=== PATIENT | female | born 1995 | race African-American/Black ===

== ENCOUNTER 2020-05-17 16:33 | Emergency (ER) | payer OTHER ==
[2020-05-17] MEDS ORDERED: diphenhydrAMINE HCL 50 MG/ML VIAL ONE (16:58)
[2020-05-17] MEDS ORDERED: HALOPERIDOL LACTATE INJ 5 MG/ML VIAL ONE (16:58)
[2020-05-17] MEDS ORDERED: LORAZEPAM INJ 2 MG/ML VIAL ONE (16:58)
[2020-05-17] MEDS ORDERED: HALOPERIDOL LACTATE INJ 5 MG/ML VIAL IM ONE (17:00)
[2020-05-17] MEDS ORDERED: LORAZEPAM INJ 2 MG/ML VIAL IM ONE (17:00)
[2020-05-17] MEDS ORDERED: diphenhydrAMINE HCL 50 MG/ML VIAL IM ONE (17:00)
[2020-05-17] MEDS ORDERED: POTASSIUM CHLORIDE 20 MEQ TAB.PRT.SR PO ONE ×2 (18:30→22:00)
[2020-05-18] MEDS ORDERED: OLANZAPINE 5 MG TABLET PO ONE (05:30)
[2020-05-18] MEDS ORDERED: OLANZAPINE 5 MG TABLET ONE (06:09)
== END 2020-05-18 08:20 | disposition home or self-care (01) ==
DX: F23 Brief psychotic disorder (principal); R45.1 Restlessness and agitation; E87.6 Hypokalemia; F41.9 Anxiety disorder, unspecified; F17.200 Nicotine dependence, unspecified, uncomplicated; F12.90 Cannabis use, unspecified, uncomplicated; R82.4 Acetonuria; F32.9 Major depressive disorder, single episode, unspecified; Z81.8 Family history of other mental and behavioral disorders
CPT/HCPCS: 36415; 80048; 80076; 80305; 80307; 80329; 81001; 84703; 85025; 87086; 93005; 96372 ×2; 99285; G0480; J1200; J1630; J2060